=== PATIENT | male | born 1945 | race Two or more races ===

== ENCOUNTER → 2018-06-09 | Outpatient (CLI) | payer MEDICAID | END | disposition home or self-care (01) | LOC: LAB 14:27 | PROVIDERS: ATTEND Internal Medicine Gastroenterology | DX: R10.9 Unspecified abdominal pain (principal) | CPT/HCPCS: 82705; 87045; 87899 ==

== ENCOUNTER → 2018-07-11 | Day surgery (SDC) | payer OTHER, MEDICAID ==
[2018-07-07 10:51] LABS: Hemoglobin 12.9 g/dL (13.5-17.5)
[2018-07-07 10:53] LABS: Hematocrit 38.8 % (41.0-53.0); Mean Corpuscular Hemoglobin 30.4 pg (28.0-32.0); Mean Corpuscular Hgb Conc. 33.2 g/dL (32.0-36.0); Mean Corpuscular Volume 91.6 fL (80.0-100.0); Platelet Count (auto) 589 10^3/uL (140-450); Red Blood Cells 4.23 10^6/uL (4.5-5.90); Red Cell Distribution Width 15.5 % (11.8-14.3); White Blood Cell 9.3 10^3/uL (4.4-10.8)
[2018-07-07 11:01] LABS: Basophils % (manual) 0 (0.0-2.0); Blast Cells 0; Promyelocytes % 0; Reactive Lymphocytes 0
[2018-07-07 11:15] LABS: INR 0.99 (0.9-1.15); Partial Thromboplastin Time 27.6 sec (23.78-33.04); Prothrombin Time 10.6 sec (9.27-12.13)
[2018-07-07 12:28] LABS: Band Neutrophils % (manual) 2; Eosinophils % (manual) 4 (0-7); Lymphocytes % (manual) 50 (10.0-50.0); Metamyelocytes % 1; Monocytes % (manual) 7 (0-12); Myelocytes % 2
[~2018-07-11] VITALS: Ht 152.4 cm; Wt 60.3 kg
[~2018-07-11] MED LIST: LIDOCAINE VISCOUS 2% 15ML UD ONE; SODIUM CHLORIDE LOCK 10 ML ONE; diphenhdrAMINE HCL 50 MG/1 ML VL ONE
[2018-07-11] MEDS: MIDAZOLAM HCL 5 MG/ML-1ML VIAL ONE ×2 (10:31→10:35)
[2018-07-11] MEDS: fentaNYL CITRATE 100 MCG/2 ML VL ONE ×2 (10:31→10:35)
[2018-07-11 11:26] VITALS: BP 119/58
== END | disposition home or self-care (01) ==
LOC: GI 09:24
PROVIDERS: ATTEND Internal Medicine Gastroenterology
DX: K21.9 Gastro-esophageal reflux disease without esophagitis (principal); K94.23 Gastrostomy malfunction; K29.70 Gastritis, unspecified, without bleeding; E11.9 Type 2 diabetes mellitus without complications; D64.9 Anemia, unspecified; N28.89 Other specified disorders of kidney and ureter; H40.89 Other specified glaucoma; K29.50 Unspecified chronic gastritis without bleeding; Z88.8 Allergy status to other drugs, medicaments and biological substances; Z90.49 Acquired absence of other specified parts of digestive tract; Z85.79 Personal history of other malignant neoplasms of lymphoid, hematopoietic and related tissues; Y83.9 Surgical procedure, unspecified as the cause of abnormal reaction of the patient, or of later complication, without mention of misadventure at the time of the procedure; Y82.9 Unspecified medical devices associated with adverse incidents
CPT/HCPCS: 36415; 43239; 43246; 82962; 85007; 85027; 85610; 85730; 88305; 88342; A6257; B4087; J2250; J3010; J7030; 99152